=== PATIENT | female | born 2000 | race Two or more races ===

== ENCOUNTER 2023-12-14 16:52 | Emergency (ER) | payer OTHER ==
[~2023-12-14] VITALS: Ht 157.5 cm; Wt 146.9 kg
[2023-12-14 17:51] LABS: Basophils # (auto) 0 10 ^3/uL (0-0.2); Basophils % (auto) 0.5 % (0.0-2.0); Eosinophils # (auto) 0.2 10 ^3/uL (0-0.8); Eosinophils % (auto) 1.9 % (0.0-7.0); Hematocrit 32.6 % (36.0-46.0); Hemoglobin 9.8 g/dL (12.2-16.2); Lymphocytes # (auto) 2.3 10 ^3/uL (0.4-5.4); Lymphocytes % (auto) 23.5 % (10.0-50.0); Mean Corpuscular Hemoglobin 18.5 pg (28.0-32.0); Mean Corpuscular Hgb Conc. 29.9 g/dL (32.0-36.0); Mean Corpuscular Volume 61.8 fL (80.0-100.0); Monocytes # (auto) 0.8 10 ^3/uL (0-1.3); Monocytes % (auto) 7.6 % (0.0-12.0); Neutrophils # (auto) 6.6 10 ^3/uL (1.6-8.6); Neutrophils % (auto) 66.5 % (37.0-80.0); Nucleated Red Blood Cells % 0.1 %; Red Blood Cells 5.29 10^6/uL (4.0-5.20)
[2023-12-14 17:52] LABS: Red Cell Distribution Width 20.4 % (11.8-14.3)
[2023-12-14 18:10] LABS: Alanine Aminotransferase 28 U/L (7-40); Albumin 4.4 g/dL (3.2-4.8); Alkaline Phosphatase 80 U/L (46-116); Anion Gap 7 (5-15); Aspartate Aminotransferase 32 U/L (13-40); BUN/Creatinine Ratio 7.2 (10.0-20.0); Bilirubin, Total 0.3 mg/dL (0.2-1.0); Blood Urea Nitrogen 6 mg/dL (9-23); Calcium 9.6 mg/dL (8.5-10.1); Carbon Dioxide 26 mmol/L (20-30); Chloride 104 mmol/L (98-107); Glucose 107 mg/dL (74-106); Potassium 4.2 mmol/L (3.5-5.1); Sodium 137 mmol/L (136-145)
[2023-12-14 18:11] LABS: Total Protein 7.2 g/dL (5.7-8.2)
[2023-12-14 18:30] LABS: Anisocytosis Slight; Hypochromia Marked; Platelet Estimate Adequate
[2023-12-14 18:57] LABS: Amphetamine Screen, Urine Neg (NEGATIVE); Barbiturate Scree,Urine Neg (NEGATIVE); Benzodiazephine Screen, Urine Neg (NEGATIVE); Cannabinoid Screen, Urine Neg (NEGATIVE); Cocaine Screen, Urine Neg (NEGATIVE); Opiate Scree,Urine Neg (NEGATIVE); Phencyclidine Screen, Urine Neg (NEGATIVE)
[2023-12-14] MEDS: SODIUM CHLORIDE 0.9% 1,000 ML IV ONE (19:01)
[2023-12-14 19:29] LABS: Urine Bacteria FEW /hpf (None Seen); Urine Blood 3+ /uL (Negative); Urine Clarity HAZY (Clear); Urine Color Yellow (Yellow); Urine Mucus FEW (None Seen); Urine Protein, UAD 1+ (Negative); Urine Specific Gravity 1.026 (1.001-1.035); Urine Urobilinogen Normal (Negative); Urine WBC 87 /hpf (0 - 5); Urine pH 5.5 (5.0-8.0)
[2023-12-14 20:11] LABS: Hemoglobin 9.2 g/dL (12.2-16.2)
[2023-12-14 20:13] LABS: Hematocrit 30.8 % (36.0-46.0)
[2023-12-14] MEDS ORDERED: cefTRIAXone 1GM/50ML D5W 50 ML IV ONE (20:15)
[2023-12-14] MEDS ORDERED: NITR-87 PO (20:20)
[2023-12-14 20:45] VITALS: BP 108/48; PULSE 88; RESP 18; TEMP 98.6; O2SAT 98
== END 2023-12-14 20:44 | disposition home or self-care (01) ==
LOC: ER 16:52
DX: D64.9 Anemia, unspecified (principal); N39.0 Urinary tract infection, site not specified; D25.9 Leiomyoma of uterus, unspecified; N89.8 Other specified noninflammatory disorders of vagina; R42 Dizziness and giddiness; Z79.899 Other long term (current) drug therapy
CPT/HCPCS: 36415; 71045; 76830; 76856; 80053; 80307; 81001; 81025; 82962; 83605; 84484; 85014; 85018; 85025; 86850; 86900; 86901; 93005; 96360; 99285; J7030

== ENCOUNTER 2024-05-27 11:22 | Emergency (ER) | payer OTHER ==
[~2024-05-27] VITALS: Ht 157.5 cm; Wt 133.8 kg
[~2024-05-27 11:22] MED LIST: NITR-87 PO
[2024-05-27 12:51] LABS: Hemoglobin 8.7 g/dL (12.2-16.2); Monocytes # (auto) 0.7 10 ^3/uL (0-1.3); Neutrophils % (auto) 66.1 % (37.0-80.0)
[2024-05-27 12:52] LABS: Basophils # (auto) 0.1 10 ^3/uL (0-0.2); Basophils % (auto) 0.7 % (0.0-2.0); Eosinophils # (auto) 0.1 10 ^3/uL (0-0.8); Eosinophils % (auto) 1.6 % (0.0-7.0); Hematocrit 28.6 % (36.0-46.0); Lymphocytes # (auto) 2.3 10 ^3/uL (0.4-5.4); Mean Corpuscular Hemoglobin 17.7 pg (28.0-32.0); Mean Corpuscular Hgb Conc. 30.3 g/dL (32.0-36.0); Mean Corpuscular Volume 58.4 fL (80.0-100.0); Monocytes % (auto) 7.6 % (0.0-12.0); Neutrophils # (auto) 6.3 10 ^3/uL (1.6-8.6); Platelet Count (auto) 413 10^3/uL (140-450); White Blood Cell 9.5 10^3/uL (4.4-10.8)
[2024-05-27] MEDS ORDERED: MAGN100T6 OR (12:52)
[2024-05-27 12:53] LABS: Red Cell Distribution Width 20.3 % (11.8-14.3)
[2024-05-27 13:08] LABS: Albumin 4.1 g/dL (3.2-4.8); Alkaline Phosphatase 73 U/L (46-116); Anion Gap 3 (5-15); Aspartate Aminotransferase 13 U/L (13-40); BUN/Creatinine Ratio 8.3 (10.0-20.0); Blood Urea Nitrogen 6 mg/dL (9-23); Calcium 9.5 mg/dL (8.7-10.4); Carbon Dioxide 25 mmol/L (20-30); Chloride 108 mmol/L (98-107); Glucose 94 mg/dL (74-106); Potassium 3.8 mmol/L (3.5-5.1); Sodium 136 mmol/L (136-145)
[2024-05-27 13:09] LABS: Bilirubin, Total 0.5 mg/dL (0.2-1.0); Total Protein 7.2 g/dL (5.7-8.2)
[2024-05-27 13:27] LABS: Alanine Aminotransferase 9 U/L (7-40)
[2024-05-27] MEDS ORDERED: DOCU-94 PO (13:31)
[2024-05-27 13:32] VITALS: BP 119/85; PULSE 85; RESP 16; TEMP 98.7; O2SAT 95
[2024-05-27 13:35] LABS: Anisocytosis Slight; Hypochromia Moderate; Platelet Estimate Adequate
== END 2024-05-27 13:38 | disposition home or self-care (01) ==
LOC: ER 11:22
DX: K59.00 Constipation, unspecified (principal); E11.9 Type 2 diabetes mellitus without complications; Z86.2 Personal history of diseases of the blood and blood-forming organs and certain disorders involving the immune mechanism; Z79.899 Other long term (current) drug therapy
CPT/HCPCS: 36415; 74018; 80053; 85025